=== PATIENT | male | born 1970 | race Two or more races ===

== ENCOUNTER 2023-03-02 23:14 | Inpatient (IN) | payer MEDICARE, OTHER ==
[~2023-03-02] VITALS: Ht 175.3 cm; Wt 72.6 kg
[2023-03-03] MEDS ORDERED: HALOPERIDOL LACTATE INJ 5 MG/ML VIAL ONE (00:18)
[2023-03-03] MEDS ORDERED: HALOPERIDOL LACTATE INJ 5 MG/ML VIAL IM ONE (00:30)
[2023-03-03 00:57] LABS: BASOPHILS # (AUTO) 0.1 K/uL (0.0-0.2); BASOPHILS % (AUTO) 1.9 % (0.0-2.0); EOSINOPHILS % (AUTO) 0.8 % (0.0-6.0); HEMATOCRIT 41 % (39-51); HEMOGLOBIN 14.4 g/dL (13.5-17.5); LYMPHOCYTES # (AUTO) 1.1 K/uL (0.8-4.8); LYMPHOCYTES % (AUTO) 19.7 % (20.0-44.0); MEAN CORPUSCULAR HEMOGLOBIN 32 PG (26.0-33.0); MEAN CORPUSCULAR HGB CONC 36 g/dl (31.0-36.0); MEAN CORPUSCULAR VOLUME 90 fL (80-96); MONOCYTES # (AUTO) 0.5 K/uL (0.1-1.30); MONOCYTES % (AUTO) 9.2 % (2.0-12.0); NEUTROPHILS # (AUTO) 3.9 K/uL (1.8-8.9); NEUTROPHILS % (AUTO) 68.4 % (43.0-81.0); PLATELET COUNT (AUTO) 239 K/uL (150-450); RED BLOOD CELL COUNT(AUTO) 4.49 MIL/uL (4.5-6.0); WHITE BLOOD COUNT (AUTO) 5.8 K/uL (4.3-11.0)
[2023-03-03 01:22] LABS: APPEARANCE,URINE CLEAR (CLEAR); BILIRUBIN,URINE NEGATIVE (NEGATIVE); BLOOD, URINE TRACE-INTA Ery/uL (NEGATIVE); COLOR,URINE YELLOW (YELLOW); KETONES,URINE NEGATIVE (NEGATIVE); LEUKOCYTE ESTERASE ,URINE NEGATIVE (NEGATIVE); NITRITE, URINE NEGATIVE (NEGATIVE); PH,URINE 5.5 (5.0-8.0); PROTEIN,URINE NEGATIVE (NEGATIVE); UGLUCOSE 3+ mg/dL (NEGATIVE); UROBILINOGEN,URINE 0.2 EU/dL (0.2)
[2023-03-03 01:27] LABS: ALANINE AMINOTRANSFERASE 24 U/L (12-78); ALBUMIN 3.6 g/dL (3.4-5.0); ALCOHOL, BLOOD < 3 mg/dL (0-10); ALKALINE PHOSPHATASE 125 U/L (46-116); ASPARTATE AMINOTRANSFERASE 15 U/L (15-37); BILIRUBIN,DIRECT 0.2 mg/dL (0.0-0.2); CALCIUM, SERUM 8.9 mg/dL (8.5-10.1); CARBON DIOXIDE 28 mmol/L (21-32); CHLORIDE 92 mmol/L (98-107); CREATININE 0.9 mg/dL (0.6-1.3); POTASSIUM 3.8 mmol/L (3.5-5.1); SODIUM SERUM 133 mmol/L (136-145); TOTAL PROTEIN, SERUM 7.8 g/dL (6.4-8.2); UREA NITROGEN, BLOOD 22 mg/dL (7-18)
[2023-03-03 01:32] LABS: SALICYLATE < 0.2 mg/dL (2.8-20.0)
[2023-03-03 01:33] LABS: ADD URINE CULTURE NO; BACTERIA,URINE Rare /HPF (None Seen); RBC,URINE 0-2 /HPF (0-2); SQUAMOUS EPITHELIAL CELL,UR Few /HPF (None Seen); WBC,URINE 0-2 /HPF (0-3)
[2023-03-03 01:33] LABS: ACETAMINOPHEN <10 ug/ml (10-30); GLUCOSE 401 mg/dL (74-106)
[2023-03-03 01:34] LABS: AMPHETAMINE, URINE NEGATIVE (NEGATIVE); BARBITURATE, URINE NEGATIVE (NEGATIVE); BENZODIAZEPINE, URINE NEGATIVE (NEGATIVE); CANNABINOID, URINE NEGATIVE (NEGATIVE); COCCAINE, URINE NEGATIVE (NEGATIVE); OPIATE, URINE NEGATIVE (NEGATIVE); PHENCYCLIDINE SCREEN,URINE NEGATIVE (NEGATIVE)
[2023-03-03] MEDS ORDERED: diphenhydrAMINE HCL 50 MG/ML VIAL ONE (01:57)
[2023-03-03] MEDS ORDERED: IV NS 0.9% 1,000 ML BAG IV ONE (02:00)
[2023-03-03] MEDS ORDERED: diphenhydrAMINE HCL 50 MG/ML VIAL IM ONE (02:00)
[2023-03-03] MEDS ORDERED: INSULIN REGULAR, HUMAN 100 UNIT/ML 10 ML VIAL IV ONE (02:00)
[2023-03-03] MEDS ORDERED: INSULIN REGULAR, HUMAN 100 UNIT/ML 10 ML VIAL ONE (02:09)
[2023-03-03] MEDS ORDERED: INSU100V7 SQ (02:46)
[2023-03-03] MEDS ORDERED: MULT-447 PO (02:46)
[2023-03-03] MEDS ORDERED: APIX2.5T PO (02:46)
[2023-03-03] MEDS ORDERED: FLUO20CA42 PO (02:46)
[2023-03-03] MEDS ORDERED: SODI100037 PO (02:46)
[2023-03-03] MEDS ORDERED: QUET50TA PO (02:46)
[2023-03-03] MEDS ORDERED: METF-440 PO (02:46)
[2023-03-03] MEDS ORDERED: DEXTROSE 50%-WATER 50 ML DISP.SYRIN IV PRN (03:00)
[2023-03-03 03:16] VITALS: O2SAT 98
[2023-03-03] MEDS ORDERED: ACETAMINOPHEN 325 MG TABLET PO PRN (04:30)
[2023-03-03] MEDS ORDERED: BLOOD SUGAR DIAGNOSTIC 1 EACH STRIP IN ONE (04:30)
[2023-03-03] MEDS ORDERED: ZOLPIDEM TARTRATE 5 MG TABLET PO PRN (04:30)
[2023-03-03] MEDS ORDERED: MAG HYDROX/AL HYDROX/SIMETH 30 ML UDC PO PRN (04:30)
[2023-03-03] MEDS ORDERED: LORAZEPAM 0.5 MG TABLET PO PRN ×2 (04:30→11:00)
[2023-03-03] MEDS ORDERED: MAGNESIUM HYDROXIDE 30 ML UDC PO PRN (04:30)
[2023-03-03 05:22] VITALS: BP 101/67; TEMP 97.9
[2023-03-03 06:40] VITALS: BP 101/67; TEMP 97.9; O2SAT 97
[2023-03-03] MEDS: BLOOD SUGAR DIAGNOSTIC 1 EACH STRIP IN SCH ×4 (07:36→22:10)
[2023-03-03 08:00] VITALS: BP 114/81; TEMP 98.1; O2SAT 98
[2023-03-03 08:02] LABS: CREATININE 0.8 mg/dL (0.6-1.3)
[2023-03-03] MEDS ORDERED: INSU100V39 SQ (08:19)
[2023-03-03] MEDS ORDERED: POLY15DR17 EACHEYE (08:19)
[2023-03-03] MEDS ORDERED: ACET-2605 PO (08:19)
[2023-03-03] MEDS ORDERED: HYDR-4303 PO (08:19)
[2023-03-03] MEDS ORDERED: BISA10SU11 RC (08:19)
[2023-03-03] MEDS: INSULIN REGULAR, HUMAN 100 UNIT/ML 3 ML VIAL SQ PRN ×4 (09:36→22:13)
[2023-03-03] MEDS: SODIUM CHLORIDE 1000 MG TABLET PO SCH ×2 (10:03→17:15)
[2023-03-03] MEDS: METFORMIN 500 MG TABLET PO SCH ×2 (10:03→17:15)
[2023-03-03] MEDS: APIXABAN 2.5 MG TABLET PO SCH ×2 (10:03→20:59)
[2023-03-03] MEDS: MULTIVITAMINS,THERAGRAN 1 UDTAB TABLET PO SCH (10:03)
[2023-03-03 20:00] VITALS: BP 112/83; TEMP 98; O2SAT 99
[2023-03-03] MEDS ORDERED: INSULIN GLARGINE, 100 UNIT/ML CARTRIDGE SQ SCH (22:00)
[2023-03-03] MEDS: OLANZAPINE ZYDIS 5 MG TAB.RAPDIS PO SCH (22:01)
[2023-03-03] MEDS: INSULIN GLARGINE, 100 UNIT/ML CARTRIDGE SQ SCH (22:14)
[2023-03-04] MEDS ORDERED: ACETAMINOPHEN ES 500 MG TABLET PO PRN
[2023-03-04] MEDS ORDERED: DEXTROSE 50%-WATER 50 ML DISP.SYRIN IV PRN
[2023-03-04] MEDS ORDERED: BISACODYL SUPP (10 MG) 10 MG/SUPP.RECT SUPP.RECT RC PRN
[2023-03-04] MEDS ORDERED: HYDROCODONE/APAP 5/325MG TABLET PO PRN
[2023-03-04] MEDS ORDERED: POLYVINYL ALCOHOL 15 ML BOTTLE EACHEYE PRN (00:30)
[2023-03-04] MEDS: BLOOD SUGAR DIAGNOSTIC 1 EACH STRIP IN SCH ×4 (07:38→22:18)
[2023-03-04 08:00] VITALS: BP 90/60; TEMP 98; O2SAT 94
[2023-03-04 08:25] LABS: THYROID STIMULATING HORMONE 0.909 uIU/mL (0.358-3.74)
[2023-03-04] MEDS: SODIUM CHLORIDE 1000 MG TABLET PO SCH ×2 (08:27→17:29)
[2023-03-04] MEDS: MULTIVITAMINS,THERAGRAN 1 UDTAB TABLET PO SCH (08:27)
[2023-03-04] MEDS: FLUOXETINE HCL 20 MG CAPSULE PO SCH (08:27)
[2023-03-04] MEDS: METFORMIN 500 MG TABLET PO SCH ×2 (08:27→17:29)
[2023-03-04] MEDS: APIXABAN 2.5 MG TABLET PO SCH ×2 (08:28→21:35)
[2023-03-04] MEDS ORDERED: MULTIVIT W/MINERALS 1 TAB TABLET PO SCH (09:00)
[2023-03-04 16:00] VITALS: BP 111/59; TEMP 97.4; O2SAT 98
[2023-03-04 20:00] VITALS: BP 91/63; TEMP 98.2; O2SAT 99
[2023-03-04] MEDS: OLANZAPINE ZYDIS 5 MG TAB.RAPDIS PO SCH (22:00)
[2023-03-04] MEDS: INSULIN GLARGINE, 100 UNIT/ML CARTRIDGE SQ SCH (22:00)
[2023-03-04] MEDS: INSULIN REGULAR, HUMAN 100 UNIT/ML 3 ML VIAL SQ PRN (22:37)
[2023-03-05] MEDS: INSULIN REGULAR, HUMAN 100 UNIT/ML 3 ML VIAL SQ PRN ×4 (02:08→17:15)
[2023-03-05] MEDS: BLOOD SUGAR DIAGNOSTIC 1 EACH STRIP IN SCH ×4 (07:57→22:00)
[2023-03-05 08:00] VITALS: BP 103/75; TEMP 97.6; O2SAT 98
[2023-03-05] MEDS: SODIUM CHLORIDE 1000 MG TABLET PO SCH ×2 (09:15→17:27)
[2023-03-05] MEDS: FLUOXETINE HCL 20 MG CAPSULE PO SCH (09:15)
[2023-03-05] MEDS: MULTIVITAMINS,THERAGRAN 1 UDTAB TABLET PO SCH (09:15)
[2023-03-05] MEDS: METFORMIN 500 MG TABLET PO SCH ×2 (09:15→17:27)
[2023-03-05] MEDS: APIXABAN 2.5 MG TABLET PO SCH ×2 (09:16→21:40)
[2023-03-05 16:00] VITALS: BP 105/68; TEMP 97.6; O2SAT 100
[2023-03-05] MEDS: INSULIN GLARGINE, 100 UNIT/ML CARTRIDGE SQ SCH (22:00)
[2023-03-05] MEDS: OLANZAPINE ZYDIS 5 MG TAB.RAPDIS PO SCH (22:00)
[2023-03-06] MEDS: INSULIN REGULAR, HUMAN 100 UNIT/ML 3 ML VIAL SQ PRN ×5 (03:38→22:03)
[2023-03-06 08:00] VITALS: BP 100/70; TEMP 97.9; O2SAT 98
[2023-03-06] MEDS: FLUOXETINE HCL 20 MG CAPSULE PO SCH (08:17)
[2023-03-06] MEDS: BLOOD SUGAR DIAGNOSTIC 1 EACH STRIP IN SCH ×4 (08:17→21:31)
[2023-03-06] MEDS: MULTIVITAMINS,THERAGRAN 1 UDTAB TABLET PO SCH (08:17)
[2023-03-06] MEDS: SODIUM CHLORIDE 1000 MG TABLET PO SCH ×2 (08:17→17:49)
[2023-03-06] MEDS: APIXABAN 2.5 MG TABLET PO SCH ×2 (08:18→21:52)
[2023-03-06] MEDS: METFORMIN 500 MG TABLET PO SCH ×2 (08:19→17:49)
[2023-03-06] MEDS: OLANZAPINE ZYDIS 5 MG TAB.RAPDIS PO SCH ×2 (12:32→17:48)
[2023-03-06 16:00] VITALS: BP 102/67; TEMP 98.2; O2SAT 98
[2023-03-06] MEDS: INSULIN GLARGINE, 100 UNIT/ML CARTRIDGE SQ SCH (22:02)
[2023-03-07] MEDS: INSULIN REGULAR, HUMAN 100 UNIT/ML 3 ML VIAL SQ PRN ×3 (07:33→17:38)
[2023-03-07] MEDS: BLOOD SUGAR DIAGNOSTIC 1 EACH STRIP IN SCH ×4 (07:34→22:00)
[2023-03-07 08:00] VITALS: BP 116/72; TEMP 97.9; O2SAT 97
[2023-03-07] MEDS: MULTIVITAMINS,THERAGRAN 1 UDTAB TABLET PO SCH (08:10)
[2023-03-07] MEDS: SODIUM CHLORIDE 1000 MG TABLET PO SCH ×2 (08:10→16:46)
[2023-03-07] MEDS: FLUOXETINE HCL 20 MG CAPSULE PO SCH (08:10)
[2023-03-07] MEDS: OLANZAPINE ZYDIS 5 MG TAB.RAPDIS PO SCH ×2 (08:10→16:46)
[2023-03-07] MEDS: APIXABAN 2.5 MG TABLET PO SCH ×2 (08:10→21:07)
[2023-03-07] MEDS: METFORMIN 500 MG TABLET PO SCH ×2 (08:10→17:38)
[2023-03-07] MEDS: INSULIN GLARGINE, 100 UNIT/ML CARTRIDGE SQ SCH (22:00)
[2023-03-08 08:00] VITALS: BP 109/75; TEMP 97.8; O2SAT 98
[2023-03-08] MEDS: OLANZAPINE ZYDIS 5 MG TAB.RAPDIS PO SCH ×2 (08:23→16:38)
[2023-03-08] MEDS: FLUOXETINE HCL 20 MG CAPSULE PO SCH (08:23)
[2023-03-08] MEDS: SODIUM CHLORIDE 1000 MG TABLET PO SCH ×2 (08:23→16:38)
[2023-03-08] MEDS: METFORMIN 500 MG TABLET PO SCH ×2 (08:23→17:14)
[2023-03-08] MEDS: MULTIVITAMINS,THERAGRAN 1 UDTAB TABLET PO SCH (08:24)
[2023-03-08] MEDS: BLOOD SUGAR DIAGNOSTIC 1 EACH STRIP IN SCH ×4 (08:24→21:02)
[2023-03-08] MEDS: INSULIN REGULAR, HUMAN 100 UNIT/ML 3 ML VIAL SQ PRN ×4 (08:28→21:06)
[2023-03-08] MEDS: APIXABAN 2.5 MG TABLET PO SCH ×2 (08:28→20:13)
[2023-03-08 16:00] VITALS: BP 110/76; TEMP 97.7; O2SAT 97
[2023-03-08] MEDS: INSULIN GLARGINE, 100 UNIT/ML CARTRIDGE SQ SCH (21:04)
[2023-03-09 08:00] VITALS: BP 105/82; TEMP 97.7; O2SAT 99
[2023-03-09] MEDS: BLOOD SUGAR DIAGNOSTIC 1 EACH STRIP IN SCH ×4 (08:30→21:57)
[2023-03-09] MEDS: INSULIN REGULAR, HUMAN 100 UNIT/ML 3 ML VIAL SQ PRN ×4 (08:34→21:59)
[2023-03-09] MEDS: FLUOXETINE HCL 20 MG CAPSULE PO SCH (09:59)
[2023-03-09] MEDS: SODIUM CHLORIDE 1000 MG TABLET PO SCH ×2 (09:59→17:56)
[2023-03-09] MEDS: METFORMIN 500 MG TABLET PO SCH ×2 (09:59→17:56)
[2023-03-09] MEDS: MULTIVITAMINS,THERAGRAN 1 UDTAB TABLET PO SCH (10:00)
[2023-03-09] MEDS: OLANZAPINE ZYDIS 5 MG TAB.RAPDIS PO SCH ×2 (10:00→17:56)
[2023-03-09] MEDS: APIXABAN 2.5 MG TABLET PO SCH ×2 (10:02→21:41)
[2023-03-09 16:00] VITALS: BP 100/61; TEMP 98.8; O2SAT 99
[2023-03-09 20:00] VITALS: BP 104/60; TEMP 97.9; O2SAT 97
[2023-03-09] MEDS: INSULIN GLARGINE, 100 UNIT/ML CARTRIDGE SQ SCH ×2 (22:00→22:01)
[2023-03-10] MEDS: BLOOD SUGAR DIAGNOSTIC 1 EACH STRIP IN SCH ×2 (07:14→11:45)
[2023-03-10] MEDS: INSULIN REGULAR, HUMAN 100 UNIT/ML 3 ML VIAL SQ PRN ×2 (07:56→11:53)
[2023-03-10 08:00] VITALS: BP 105/73; TEMP 97.7; O2SAT 96
[2023-03-10] MEDS: FLUOXETINE HCL 20 MG CAPSULE PO SCH (08:30)
[2023-03-10] MEDS: METFORMIN 500 MG TABLET PO SCH (08:30)
[2023-03-10] MEDS: MULTIVITAMINS,THERAGRAN 1 UDTAB TABLET PO SCH (08:30)
[2023-03-10] MEDS: APIXABAN 2.5 MG TABLET PO SCH (08:31)
[2023-03-10] MEDS: SODIUM CHLORIDE 1000 MG TABLET PO SCH (08:31)
[2023-03-10] MEDS: OLANZAPINE ZYDIS 5 MG TAB.RAPDIS PO SCH (08:32)
== END 2023-03-10 13:25 | disposition home or self-care (01) | DRG 885 ==
LOC: ER 23:52 → GPS 03-03 03:25
PROVIDERS: ADMIT Psychiatry & Neurology Psychiatry; ATTEND Nurse Practitioner Acute Care
DX: F25.1 Schizoaffective disorder, depressive type (principal); E11.65 Type 2 diabetes mellitus with hyperglycemia; E87.1 Hypo-osmolality and hyponatremia; F03.93 Unspecified dementia, unspecified severity, with mood disturbance; F29 Unspecified psychosis not due to a substance or known physiological condition; Z73.6 Limitation of activities due to disability; Z20.822 Contact with and (suspected) exposure to COVID-19; Z91.199 Patient's noncompliance with other medical treatment and regimen due to unspecified reason; Z79.84 Long term (current) use of oral hypoglycemic drugs; Z79.899 Other long term (current) drug therapy; Z79.01 Long term (current) use of anticoagulants; E86.0 Dehydration; R79.89 Other specified abnormal findings of blood chemistry
CPT/HCPCS: 36415; 80048-TC; 80061-TC; 80076-TC; 81001; 82565-TC; 82962-TC; 84443-TC; 85025-TC; 97112-TC; 97116-TC; 97530-TC; G0480; J1200; J1630; J1815; J7030